=== PATIENT | male | born 1950 | race Caucasian/White ===

== ENCOUNTER 2016-12-09 09:04 | Day surgery (SDC) | payer MEDICARE ==
[~2016-12-09 09:04] MED LIST: Buffered Lidocaine 0.9% SYRIN* 5 ML/SYR SYRINGE INTRADERM ONE; NS 0.9% 1000 ML* 1,000 ML IV SCH
[2016-12-09] MEDS ORDERED: Buffered Lidocaine 0.9% SYRIN* 5 ML/SYR SYRINGE ONE (09:12)
[2016-12-09] MEDS ORDERED: CeFAZolin 1 GM PREMIX(*) 1 GM BAG (REFRIGERATE) IVPB ONE ×2 (09:12→09:13)
[2016-12-09] MEDS ORDERED: fentaNYL* 50 MCG/ML 2 ML VIAL (100 MCG VIAL) ONE ×2 (10:13→14:24)
[2016-12-09] MEDS ORDERED: Midazolam* 1 MG/ML 2 ML VIAL (2 MG) ONE (10:13)
[2016-12-09] MEDS ORDERED: Lidocaine 2% PF * 5 ML VIAL ONE (10:14)
[2016-12-09] MEDS ORDERED: Propofol* 10 MG/ML 20 ML BTL IV PUSH ONE (10:14)
[2016-12-09] MEDS ORDERED: Bupivacaine 0.25% SDV* 30 ML ONE (11:49)
[2016-12-09] MEDS ORDERED: Ketorolac INJ* 30 MG/ML 1 ML VIAL ONE (12:02)
[2016-12-09] MEDS ORDERED: Ondansetron INJ* 2 MG/ML VIAL ONE (12:02)
[2016-12-09] MEDS ORDERED: Famotidine IV* 10 MG/ML 2 ML (20 mg) ONE (12:02)
[2016-12-09] MEDS ORDERED: HYDROmorphone INJ* 1 MG/ML CARPUJECT SYRINGE IV PRN (12:21)
[2016-12-09] MEDS ORDERED: Ibuprofen TAB* 400 MG PO PRN (12:21)
[2016-12-09] MEDS ORDERED: Levalbuterol 0.63MG/3ML NEB* UNIT OF USE INH PRN (12:21)
[2016-12-09] MEDS ORDERED: HYDROcodone/ACETAMIN 5-325 MG* 1 TAB PO PRN ×2 (12:21)
[2016-12-09] MEDS ORDERED: oxyCODONE TAB* 5 MG TAB PO PRN (12:21)
[2016-12-09] MEDS ORDERED: fentaNYL* 50 MCG/ML 2 ML VIAL (100 MCG VIAL) IV PRN (12:21)
[2016-12-09] MEDS ORDERED: Ondansetron INJ* 2 MG/ML VIAL IV PRN (12:21)
[2016-12-09] MEDS ORDERED: Acetaminophen TAB* 325 MG PO PRN (12:21)
[2016-12-09] MEDS ORDERED: PROCHLORPERAZINE INJ 5 MG/ML 2 ML VIAL IV PRN (12:21)
[2016-12-09] MEDS ORDERED: Phenylephrine IV* 40 MCG/ML 10 ML SYRINGE ONE (12:44)
[2016-12-09] MEDS ORDERED: EPHEDrine (Pressors)* 50 MG/ML VIAL ONE (12:44)
[2016-12-09] MEDS ORDERED: Sterile Water for Inj* 10 ML ONE (12:44)
[2016-12-09] MEDS ORDERED: HYDROcodone/ACETAMIN 5-325 MG* 1 TAB ONE (14:06)
[2016-12-09 15:36] VITALS: BP 114/68
--- NOTE | 2016-12-10 21:41 | OP ---
OPERATIVE REPORT: DATE OF OPERATION: 12/09/16- -SDS DATE OF : 46 SURGEON: Honorio Sánchez MD ASSISTANTS: HUEY Jain. and HUEY Clark. An assistant manager airside operations was needed for the entirety of the procedure to aid in positioning of the arm and retraction ANESTHESIOLOGIST: Dr. De La Cruz. ANESTHESIA: General. PRE-OP DIAGNOSIS: Severe right ulnar nerve compression, status prior in situ decompression in 2013. POST-OP DIAGNOSIS: Severe right ulnar nerve compression, status prior in situ decompression in 2013. OPERATIVE PROCEDURE: Revision ulnar nerve decompression at the elbow with anterior transposition. Please note that the procedure was substantially more difficult than normal and required significantly more time than normal due to having to performing neurolysis through a dense bed of scar tissue. INDICATIONS: Tad had a prior in situ cubital tunnel release in 2013 elsewhere here in [facility]. He has had severe symptoms. He is having severe posterior medial elbow pain, severe numbness and tingling in the ulnar 2 digits. He is noticing weakness in the hand. 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 I talked to him about risks and benefits including increased risk due to this denervation surgery and the need for extensive neurolysis in order to be able to perform the transposition. He had wanted to proceed. ESTIMATED BLOOD LOSS: 5 mL. COMPLICATIONS: None. FINDINGS: The ulnar nerve was severely compressed just at the median edge of the flexor carpi ulnaris muscle. There was a 2-cm where it was quite compressed by tight fascial band there. DESCRIPTION OF PROCEDURE: Tad was seen in the preoperative holding area. We came back to the operative room. The arm was prepped and draped in usual fashion. A time-out was performed. I exsanguinated with the Esmarch and the tourniquet was inflated to 250 mmHg. His prior curvilinear incisions centered over Mcgarry's ligament was utilized, this was extended another 3 or so cm proximally and distally. Dissection was carried proximally with the Bovie, distally was taken now with the tenotomy scissors. I raised a full-thickness flap off of the fascia just anterior and superior to the medial epicondyle. The ulnar nerve was encountered seen just on the posterior aspect of the epicondyle. I began the decompression just at the proximal aspect of Mcgarry's ligament. This was carried out proximally, there was a quite bit of scar tissue noted along the nerve. I then worked distally and once I got the distal aspect of Mcgrary's ligament, there was a very tight fascial band that was frankly compressing and indenting the ulnar nerve. I went head and released this. I then released the superficial FCU fascia. I split the 2 heads of the FCU and then released the subfascial layer. At this point, I took some time and I performed a full neurolysis. I removed quite a bit of scar tissue from the ulnar nerve. I went ahead and excised the leading edge of the FCU fascia, also excised the medial intermuscular septum. I created 2 apposing facial flaps one proximally based, one distally based off of the flexor pronator fascia. This was to performed in step cut fashion. I went ahead and transposed the nerve. I had re-excised all the septa in between the muscle bellies to have a nice soft muscle bed for the nerve to sit on. I went ahead and transposed my fascial flaps over the nerve and sewed them end to end with 3 kgknud-me-dking 3-0 Ethibond sutures. There was no compression on the nerve and I took the nerve through full flexion and extension arc and the nerve stayed in a nice and transposed position. There was no kinking. There was no issues whatsoever with the nerve. At this point, I went head and irrigated out the wound copiously. Hemostasis was obtained with Bovie cautery. The subcutaneous tissue is reapproximated with 3-0 Vicryl and the skin was closed with 4-0 nylon suture. Wound was infiltrated with 0.25% plain Marcaine. The wound was dressed with Xeroform, 4x4s, sterile Webril and ABD and posterior slab splint with lateral buttress. The tourniquet was deflated during the splint placement. He was then woken up and taken to the recovery room in stable condition. [id number]/[facility] #: [id number] [facility]ENTERJason
== END 2016-12-09 15:22 | disposition home or self-care (01) ==
LOC: OR 09:04
PROVIDERS: ATTEND Orthopaedic Surgery Hand Surgery
DX: G56.21 Lesion of ulnar nerve, right upper limb (principal); I10 Essential (primary) hypertension; Z68.29 Body mass index [BMI] 29.0-29.9, adult; N40.1 Benign prostatic hyperplasia with lower urinary tract symptoms; R33.8 Other retention of urine
CPT/HCPCS: J0690; J1885; J2250; J2405; J2704; J3010

== ENCOUNTER 2018-01-15 05:44 | Day surgery (SDC) | payer MEDICARE ==
--- NOTE | 2017-08-05 04:11 | HP ---
HISTORY AND PHYSICAL: DATE OF ADMISSION/SURGERY: 08/07/17 SURGEON: Yumiko Hughes MD * (DICTATED BY HUEY CAVAZOS) PROCEDURE: Right knee arthroscopy with partial lateral meniscectomy, possible chondroplasty, possible synovectomy. CHIEF COMPLAINT: Right knee pain. HISTORY OF PRESENT ILLNESS: Mr. Delatorre is a 66-year-old gentleman with complaints of right knee pain secondary to a lateral meniscus tear. He has failed conservative management and elected to proceed with right knee arthroscopy. PAST MEDICAL HISTORY: Hypertension and BPH. PAST SURGICAL HISTORY: Right ulnar nerve decompression, cervical fusion, lumbar fusion. CURRENT MEDICATIONS: 1. Losartan 50 mg daily. 2. Metoprolol 25 mg q.h.s. ALLERGIES: None. FAMILY HISTORY: Heart disease. SOCIAL HISTORY: He is a 66-year-old gentleman who lives with his . He does not smoke or use drugs. Uses occasional alcohol. REVIEW OF SYSTEMS: A complete 14-point review of systems is reviewed with the patient. It is all negative or noncontributory. He denies history of DVT, PE, hepatitis, HIV, or anesthesia problems. PHYSICAL EXAMINATION GENERAL: Well developed, well nourished, in no acute distress. VITAL SIGNS: He stands 67 inches tall, weighs 195 pounds. Blood pressure 138/ 84 and heart rate 72. HEENT: Normocephalic, atraumatic. NECK: Supple. No palpable lymph nodes. PULMONARY: The lungs are clear to auscultation bilaterally. CARDIO: Regular rate and rhythm. Strong S1, S2. ABDOMEN: Soft, nontender, nondistended. MUSCULOSKELETAL: Right lower extremity: The skin is intact. There are no open wounds or abrasions. There is a moderate joint effusion. He has some tenderness over the lateral joint line. Positive Khang's. No varus or valgus instability. 2+ dorsalis pedis pulses. His lower extremities muscle group strengths are intact at 5/5 and he has intact sensation. NEUROLOGICAL: Alert and oriented x3. Cranial nerves II through XII are intact. ASSESSMENT AND PLAN: Mr. Delatorre is a 66-year-old gentleman with complaints of right knee pain. An MRI confirms a lateral meniscus tear. He has elected to proceed with right knee arthroscopy with partial lateral meniscectomy, possible chondroplasty, possible synovectomy. The surgery is scheduled for with Dr. Hughes. Dr. Hughes discussed the risks and benefits of the surgery on today's visit and all of his questions were answered. He will follow up with Dr. Hughes 2 weeks after the surgery. HUEY CAVAZOS [id number]/[facility] #: [id number] MARTIN
--- NOTE | 2018-01-05 19:39 | HP ---
HISTORY AND PHYSICAL: DATE OF ADMISSION/SURGERY: 01/15/18 DATE OF OFFICE VISIT: 01/05/18 SURGEON: Yumiko Hughes MD * (DICTATED BY HUEY CAVAZOS) PROCEDURE: Right knee arthroscopy with partial meniscectomy, possible chondroplasty, possible synovectomy. CHIEF COMPLAINT: Right knee pain. HISTORY OF PRESENT ILLNESS: Mr. Delatorre is a 67-year-old gentleman with complaints of right knee pain and MRI confirms a meniscal tear. He has elected to proceed with surgery. PAST MEDICAL HISTORY: Hypertension and BPH. PAST SURGICAL HISTORY: Right arm ulnar nerve decompression x2, cervical fusion , lumbar fusion. CURRENT MEDICATIONS: 1. Losartan potassium 50 mg daily. 2. Metoprolol 25 mg twice a day. 3. Advil as needed. 4. Ginseng. ALLERGIES: None. FAMILY HISTORY: Hypertension. SOCIAL HISTORY: He is a 67-year-old gentleman, lives with his . He does not smoke or use drugs. Uses occasional alcohol. REVIEW OF SYSTEMS: A complete 14-point review of systems was reviewed with the patient. It is all negative or noncontributory. PHYSICAL EXAMINATION GENERAL: He is well developed, well nourished, in no acute distress. VITAL SIGNS: He stands 67 inches tall, weighs 202 pounds. His blood pressure is 140/84 and his heart rate is 64. HEENT: Normocephalic, atraumatic. NECK: Supple. No palpable lymph nodes. PULMONARY: The lungs are clear to auscultation bilaterally. CARDIO: Regular rate and rhythm. Strong S1, S2. ABDOMEN: Soft, nontender, and nondistended. NEUROLOGICAL: He is alert and oriented x3. MUSCULOSKELETAL: Right lower extremity: The skin is intact. There are no open wounds or abrasions. There is a mild joint effusion. He has some tenderness along the medial and lateral joint lines. Positive Apley's and Khang's. Range of motion is 10 to 120 degrees of flexion. He is distally neurovascularly intact. ASSESSMENT AND PLAN: Mr. Delatorre is a 67-year-old gentleman with continued complaints of right knee pain. He has failed conservative treatment and an MRI from July shows a significant tear of the lateral meniscus. He has elected to proceed with surgery, which is scheduled for 01/15/[address] Hughes discussed the risks and benefits of the surgery at today's visit and all of his questions were answered. He will follow up with Dr. Hughes 2 weeks after the surgery. HUEY CAVAZOS [id number]/[facility] #: [id number] MARTIN
[~2018-01-15 05:44] MED LIST changes: -NS 0.9% 1000 ML* 1,000 ML IV SCH
[2018-01-15] MEDS ORDERED: Dexamethasone IV* 4 MG/ML 1 ML (4 MG) IV SLOW PU ONE (06:00)
[2018-01-15] MEDS ORDERED: Famotidine IV* 10 MG/ML 2 ML (20 mg) IV ONE (06:00)
[2018-01-15] MEDS ORDERED: Famotidine IV* 10 MG/ML 2 ML (20 mg) ONE (06:16)
[2018-01-15] MEDS ORDERED: Dexamethasone IV* 4 MG/ML 1 ML (4 MG) ONE (06:16)
[2018-01-15] MEDS ORDERED: Buffered Lidocaine 0.9% SYRIN* 5 ML/SYR SYRINGE ONE (06:17)
[2018-01-15] MEDS ORDERED: ceFAZolin 2 GM PREMIX in ORs 2 GM/50 ML BAG IVPB ONE (06:17)
[2018-01-15] MEDS ORDERED: Morphine PCA ADULT* 5 MG/ML 30 ML ONE (06:26)
[2018-01-15] MEDS ORDERED: fentaNYL* 50 MCG/ML 2 ML VIAL (100 MCG VIAL) ONE (07:09)
[2018-01-15] MEDS ORDERED: Bupivacaine 0.5% PF 10 ML VIAL INJ ONE (07:22)
[2018-01-15] MEDS ORDERED: EPINEPHRINE 1 MG/ML 1 ML VIAL ONE (07:22)
[2018-01-15] MEDS ORDERED: methylPREDNISolone ACETATE 80* 80 MG/ML 1 ML VIAL ONE (07:22)
[2018-01-15] MEDS ORDERED: EPHEDrine (Pressors)* 50 MG/ML VIAL ONE (07:41)
[2018-01-15] MEDS ORDERED: Ketorolac INJ* 30 MG/ML 1 ML VIAL ONE (07:49)
[2018-01-15] MEDS ORDERED: Ondansetron INJ* 2 MG/ML VIAL ONE (07:49)
[2018-01-15] MEDS ORDERED: DiMENhydriNATE IV* 50 MG/ML VIAL IV PUSH PRN (08:38)
[2018-01-15] MEDS ORDERED: Naloxone* 0.4 MG/ML 1 ML VIAL IV PRN (08:38)
[2018-01-15] MEDS ORDERED: fentaNYL* 50 MCG/ML 2 ML VIAL (100 MCG VIAL) IV PRN (08:38)
[2018-01-15 09:41] VITALS: BP 131/79
--- NOTE | 2018-01-16 08:42 | OP ---
DATE OF OPERATION: 01/15/18 - [facility] DATE OF : 46 SURGEON: Yumiko Hughes MD SECURITY SERGEANT: HUEY Benedict. Lenard did help throughout the procedure with preparation of the leg, wound retraction, manipulation of the knee, and wound closure. ANESTHESIOLOGIST: Dr. Winkler. ANESTHESIA: General. PRE-OP DIAGNOSES: Right knee pain with lateral meniscal tear and moderate arthritis. POST-OP DIAGNOSES: Right knee parrot-beak lateral meniscal tear, severe degenerative osteoarthritis. OPERATIVE PROCEDURE: Right knee arthroscopy with partial lateral meniscectomy. INDICATIONS: Mr. Delatorre is a 67-year-old gentleman with known arthritis in the right knee and some baseline pain. He had a traumatic injury many months ago and acute increase in his pain laterally with mechanical symptoms. Lateral meniscal tear was confirmed. The patient failed conservative treatment with antiinflammatories, intraarticular injection, and physical therapy. He elected to undergo right knee arthroscopy with partial lateral meniscectomy for his acute pain and mechanical symptoms. Informed consent was obtained and the patient understood the risks of the surgery included but were not limited to bleeding, infection, damage to nearby structures, continued pain, need for further surgery, progression of arthritis, re-tear of the meniscus, stroke, heart attack, blood clot, and . He wished to proceed. COMPLICATIONS: None. ESTIMATED BLOOD LOSS: Less than 25 cc. SPECIMEN: None. INTRAOPERATIVE FINDINGS: Intraoperatively, the patient was noted to have a complex tear in the lateral meniscus, which was mainly a parrot-beak type tear involving the posterior one-third of the lateral meniscus. This involved the white-red and red-red zone. This meniscal tear was displaced anteriorly and to the joint line. The patient was noted to have grade 3 and 4 Outerbridge cartilage changes of the lateral and patellofemoral compartments with exposed subchondral bone and significant cartilage loss. He was also noted to have extensive osteophyte formation in the medial compartment of the knee. DESCRIPTION OF PROCEDURE: Mr. Delatorre was identified in the preanesthesia unit. His right lower extremity was marked as the correct operative side. Informed consent was signed and placed in the chart. The patient was taken to the operating room and placed under general anesthesia. The patient's right lower extremity was prepped and draped in the usual sterile fashion. Preop time -out was made to correctly identify the patient, side, and site. Appropriate perioperative antibiotics were given within 1 hour of incision. A standard 0.5-cm anterolateral portal incision was made with a 10-blade and carried down through the capsule. Trocar was introduced. As soon as the water and light sources were turned on, there was immediate visualization of the supra -patellar pouch. A tour of the knee joint was performed. Suprapatellar pouch had no obvious abnormality. Patellofemoral compartment had some osteophyte formation and exposed subchondral bone along the medial and lateral patellar facet. These were grade 3 and 4 Outerbridge cartilage changes. Medial gutter showed no loose body or plica. Medial compartment showed extensive osteophyte formation, but no significant exposed subchondral bone. ACL and PCL appeared to be intact. No obvious medial meniscal tear. The knee was placed in a figure -of-four position. There was a large displaced lateral meniscal tear involving the posterior portion of the meniscus; this was a parrot-beak type tear involving the white-red and red-red zone. There was exposed subchondral bone along the lateral femoral condyle and lateral tibial plateau. These were grade 3 and 4 Outerbridge cartilages changes. Lateral gutter had no obvious abnormality. Under direct visualization, a medial portal incision was made. Probe was introduced and a second tour of the knee joint was performed. There were no additional findings. Straight biter and shaver were used to perform partial lateral meniscectomy. Further probing of the meniscus showed no additional tears or flipped fragments. A radiofrequency ablation wand was used to further smooth the edge of the lateral meniscus at the area of the partial meniscectomy. This was in the white-red and red-red zone. The knee was copiously irrigated with sterile saline. All instruments were removed. The incisions were closed with interrupted nylon suture. Intraarticular injection of 80 mg of Depo-Medrol and 6 cc of 0.25% Marcaine was placed in the knee joint. The patient's incisions were covered with Xeroform, 4x4s, and Webril. Augustine wrap and cold pack were placed over this. The patient's anesthesia was reversed without difficulty. He was taken to the PACU in stable condition. Intended weightbearing will be weightbearing as tolerated. Intended DVT prophylaxis will be aspirin. [id number]/[facility] #: [id number] [facility]
== END 2018-01-15 09:46 | disposition home or self-care (01) ==
LOC: OR 05:44
PROVIDERS: ATTEND Orthopaedic Surgery Adult Reconstructive Orthopaedic Surgery
DX: S83.271A Complex tear of lateral meniscus, current injury, right knee, initial encounter (principal); M17.11 Unilateral primary osteoarthritis, right knee; I10 Essential (primary) hypertension; K21.9 Gastro-esophageal reflux disease without esophagitis; Z68.30 Body mass index [BMI] 30.0-30.9, adult; X58.XXXA Exposure to other specified factors, initial encounter; Y92.9 Unspecified place or not applicable
CPT/HCPCS: J0690; J1040; J1100; J1885; J2270; J2405; J3010

== ENCOUNTER 2019-03-01 10:59 | Day surgery (SDC) | payer MEDICARE ==
[~2019-03-01 10:59] MED LIST changes: -Buffered Lidocaine 0.9% SYRIN* 5 ML/SYR SYRINGE INTRADERM ONE; +Cyclopentolate 1% OPTH.SOL* 2 ML BTL ONE; +Ketorolac 0.5% OPHTH (NF) 0.5 % 5 ML BTL ONE; +Lidocaine 1% MPF ** 5 ML VIAL ONE; +Neomycin/Polymy/Dex OPHTH.OIN* 3.5 GM ONE; +Phenylephrine OPHTH SOL 2.5%* 2 ML ONE; +Povidone Iodine 5% OPTH* 30 ML BTL ONE; +Tetracaine 0.5% OPTH.SOL 4 ML* 1 DROP BTL ONE; +Tropicamide 1% OPTH.SOL* BTL ONE; +acetaZOLAMIDE TAB* 250 MG ONE
[2019-03-01] MEDS ORDERED: Midazolam* 1 MG/ML 2 ML VIAL (2 MG) ONE (12:53)
[2019-03-01 14:12] VITALS: BP 158/70
--- NOTE | 2019-03-01 21:21 | OP ---
DATE OF OPERATION: 03/01/19 - [facility] DATE OF : 46 SURGEON: Hussain Foreman MD ANESTHESIA: Monitored anesthesia care. PRE-OP DIAGNOSIS: Cataract, left eye. POST-OP DIAGNOSIS: Cataract, left eye. OPERATIVE PROCEDURE: Extracapsular cataract extraction of the left eye with intraocular lens implant. IMPLANT: SN60WF 22.5 diopter lens to the left eye. COMPLICATIONS: None. DESCRIPTION OF PROCEDURE: The patient was given phenylephrine 2.5 % and cyclopentolate 1% eye drops to the operative eye in the preoperative area. The patient was taken to the operating room where a time-out was taken to identify the correct patient, site, and side of surgery. The patient's left eye was prepped and draped in the usual sterile fashion with 5% Betadine. A second time -out was taken to verify the correct patient, side, and site of surgery, and correct lens implant. A lid speculum was placed to the left eye. A 1-mm paracentesis blade was used to make a clear corneal incision in the inferotemporal position. Preservative-free 1% lidocaine was injected into the anterior chamber. DisCoVisc was then injected into the anterior chamber. A 2.75-mm keratome blade was used to make a triplanar incision at the superotemporal position. A cystotome initiated a capsulorrhexis, which was completed with Utrata forceps in a continuous and curvilinear manner. Hydrodissection of the lens was performed with BSS on a cannula. The lens could be spun in a capsular bag. The phacoemulsification handpiece was used with a divide- and-conquer technique to remove the nucleus. The I/A handpiece then removed the residual cortical lens material. During the cortical removal, it was observed that an anterior capsular rent was present in the inferonasal position. The rent did not extend posteriorly. The planned SN60WF 22.5 diopter lens was then injected into the capsular bag and the haptics were rotated 90 degrees away from the anterior capsular rent. The residual DisCoVisc was removed from the eye with the I/A handpiece. The corneal incisions were hydrated and no leaks occurred at physiologic pressure around 20 mmHg per palpation. The lid speculum was removed and drapes were removed. Maxitrol ointment was placed to the surface of the operative eye. An adhesive patch and shield were then placed on the operative eye. The patient was taken to the postoperative area in stable condition. [id number]/[facility] #: [id number] MARTIN
== END 2019-03-01 14:09 | disposition home or self-care (01) ==
LOC: OREAST 10:59
PROVIDERS: ATTEND Student in an Organized Health Care Education/Training Program
DX: H25.812 Combined forms of age-related cataract, left eye (principal); I10 Essential (primary) hypertension; N40.1 Benign prostatic hyperplasia with lower urinary tract symptoms; R01.1 Cardiac murmur, unspecified; Z79.1 Long term (current) use of non-steroidal anti-inflammatories (NSAID)
CPT/HCPCS: A9270-GY; J2250; V2632

== ENCOUNTER 2020-08-16 16:32 | Inpatient (IN) ==
[2020-08-16] MEDS ORDERED: cefTRIAXone 1 gm/50 mL NS BAG 1 GM/50 ML BAG IV ONE ×2 (16:53→20:32)
[2020-08-16 17:02] LABS: Urine Appearance Cloudy; Urine Bilirubin Negative (Negative); Urine Blood 1+ (Negative); Urine Color Yellow; Urine Glucose Negative (Negative); Urine Ketones Negative (Negative); Urine Nitrite Positive (Negative); Urine Protein Negative (Negative); Urine Specific Gravity 1.017 (1.002-1.030); Urine Urobilinogen Negative (Negative)
[2020-08-16] MEDS: NS 0.9% 1000 ml BAG 1,000 ML IV ONE ×2 (17:06→20:36)
[2020-08-16 17:12] LABS: Urine Bacteria 1+ (Absent); Urine Red Blood Cell Trace(0-2/hpf) (Absent); Urine White Blood Cell 3+(>20/hpf) (Absent)
[2020-08-16 17:33] LABS: ABS Lymphocytes 1.3 10^3/ul (1.0-4.8); ABS Monocytes 1.4 10^3/ul (0-0.8); ABS Neutrophils 9.4 10^3/ul (1.5-7.7); Eosinophil % 0.4 %; Hematocrit 46 % (42-52); Hemoglobin 15.6 g/dL (14.0-18.0); Lymphocyte % 10.6 %; Mean Corpuscular HGB Conc 34 g/dL (31-36); Mean Corpuscular Hemoglobin 31 pg (27-31); Mean Corpuscular Volume 90 fL (80-94); Mean Platelet Volume 9.2 fL (7.4-10.4); Platelet Count 205 10^3/uL (150-450); Red Blood Count 5.08 10^6 /uL (4.18-5.48); Red Cell Distribution Width 13 % (10-15); White Blood Count 12.1 10^3/uL (3.5-10.8)
[2020-08-16] MEDS ORDERED: NS 0.9% IV ONE (17:44)
[2020-08-16 17:51] LABS: Albumin 4.6 g/dL (3.2-5.2); Albumin/Globulin Ratio 1.7 (1-3); C Reactive Protein 77.7 mg/L (<8.01); Calcium 9.2 mg/dL (8.6-10.3); EGFR African American 85.2 (>60); EGFR Non-African American 70.4 (>60); Globulin 2.7 g/dL (2-4); Potassium 4.1 mmol/L (3.5-5.0); Total Protein 7.3 g/dL (6.4-8.9)
[2020-08-16] MEDS ORDERED: Metoprolol Tartrate 5 mg VIAL 5 ml VIAL (1 mg/ml) IV ONE (20:29)
[2020-08-16] MEDS ORDERED: Metoprolol Tartrate 5 mg VIAL 5 ml VIAL (1 mg/ml) ONE (20:31)
[2020-08-16] MEDS: NS 0.9% 1000 ml BAG 1,000 ML IV SCH (23:58)
[2020-08-16] MEDS: Enoxaparin 40 MG/0.4 ML SYR SUBCUT SCH (23:58)
[2020-08-17] MEDS ORDERED: hydrALAZINE 20 mg/ml 1 ML Vial IV IV SLOW PU ONE (04:00)
[2020-08-17 05:50] LABS: ABS Lymphocytes 1.2 10^3/ul (1.0-4.8); ABS Monocytes 1.4 10^3/ul (0-0.8); ABS Neutrophils 8.3 10^3/ul (1.5-7.7); Eosinophil % 0.3 %; Hematocrit 41 % (42-52); Hemoglobin 13.7 g/dL (14.0-18.0); Lymphocyte % 11.1 %; Mean Corpuscular HGB Conc 33 g/dL (31-36); Mean Corpuscular Hemoglobin 30 pg (27-31); Mean Corpuscular Volume 91 fL (80-94); Mean Platelet Volume 9.1 fL (7.4-10.4); Platelet Count 185 10^3/uL (150-450); Red Blood Count 4.54 10^6 /uL (4.18-5.48); Red Cell Distribution Width 13 % (10-15)
[2020-08-17 06:07] LABS: Calcium 7.8 mg/dL (8.6-10.3); EGFR African American 115.3 (>60); EGFR Non-African American 95.3 (>60); Potassium 3.6 mmol/L (3.5-5.0)
[2020-08-17] MEDS ORDERED: NS 0.9% 500 ml BAG 500 ML IV ONE (16:26)
[2020-08-17] MEDS: cefTRIAXone 1 gm/50 mL NS BAG 1 GM/50 ML BAG IVPB SCH (16:38)
[2020-08-17] MEDS ORDERED: cefTRIAXone 2 GM ADDV.VIAL 2 GM in NS 0.9% 100 ml BAG 100 ML IV SCH (17:00)
[2020-08-17] MEDS: Enoxaparin 40 MG/0.4 ML SYR SUBCUT SCH (20:15)
[2020-08-17] MEDS: NS 0.9% 1000 ml BAG 1,000 ML IV SCH (22:45)
[2020-08-18 06:02] LABS: ABS Eosinophils 0.1 10^3/ul (0-0.6); ABS Lymphocytes 1.9 10^3/ul (1.0-4.8); ABS Monocytes 1.3 10^3/ul (0-0.8); ABS Neutrophils 6.1 10^3/ul (1.5-7.7); Eosinophil % 1.3 %; Hematocrit 41 % (42-52); Hemoglobin 13.9 g/dL (14.0-18.0); Lymphocyte % 20.2 %; Mean Corpuscular HGB Conc 34 g/dL (31-36); Mean Corpuscular Hemoglobin 31 pg (27-31); Mean Corpuscular Volume 91 fL (80-94); Mean Platelet Volume 9.7 fL (7.4-10.4); Platelet Count 160 10^3/uL (150-450); Red Cell Distribution Width 13 % (10-15); White Blood Count 9.5 10^3/uL (3.5-10.8)
[2020-08-18 06:12] LABS: C Reactive Protein 166.93 mg/L (<8.01); Calcium 8.1 mg/dL (8.6-10.3); EGFR African American 120.5 (>60); EGFR Non-African American 99.6 (>60); Potassium 3.8 mmol/L (3.5-5.0)
[2020-08-18] MEDS: cefTRIAXone 1 gm/50 mL NS BAG 1 GM/50 ML BAG IVPB SCH (18:12)
[2020-08-18 19:13] LABS: Troponin I 0.02 ng/mL (<0.03)
[2020-08-18] MEDS: NS 0.9% 1000 ml BAG 1,000 ML IV SCH (20:40)
[2020-08-18] MEDS: Enoxaparin 40 MG/0.4 ML SYR SUBCUT SCH (20:41)
[2020-08-19] MEDS: NS 0.9% 1000 ml BAG 1,000 ML IV SCH (07:51)
[2020-08-19 10:23] LABS: ABS Eosinophils 0.1 10^3/ul (0-0.6); ABS Lymphocytes 1.7 10^3/ul (1.0-4.8); ABS Monocytes 0.7 10^3/ul (0-0.8); ABS Neutrophils 4.4 10^3/ul (1.5-7.7); Eosinophil % 2.1 %; Hematocrit 42 % (42-52); Hemoglobin 13.9 g/dL (14.0-18.0); Lymphocyte % 24.4 %; Mean Corpuscular HGB Conc 33 g/dL (31-36); Mean Corpuscular Hemoglobin 30 pg (27-31); Mean Corpuscular Volume 90 fL (80-94); Mean Platelet Volume 8.9 fL (7.4-10.4); Platelet Count 220 10^3/uL (150-450); Red Cell Distribution Width 13 % (10-15); White Blood Count 6.9 10^3/uL (3.5-10.8)
[2020-08-19 10:40] LABS: Calcium 8.5 mg/dL (8.6-10.3); EGFR African American 107.5 (>60); EGFR Non-African American 88.9 (>60); Potassium 3.9 mmol/L (3.5-5.0)
[2020-08-19] MEDS ORDERED: Iohexol 300 (CONTRAST) 10 ML SDV IV ONE (11:07)
[2020-08-19 13:21] VITALS: BP 148/77
== END 2020-08-19 15:05 | disposition home or self-care (01) | DRG 698 ==
LOC: ED 16:32 → MEDTELE 20:45
PROVIDERS: ADMIT Internal Medicine; ATTEND Internal Medicine